=== PATIENT | female | born 1935 | race Caucasian/White ===

== ENCOUNTER → 2018-04-03 | Outpatient (CLI) | payer OTHER, MEDICAID ==
[~2018-04-03] MED LIST: ALPR.25T PO; CPR500T PO; HYDR-34 PO; LISI1TAB10 PO; METR500T PO; MULT-963 PO; RT-ALBUTEROL SULF 2.5 MG/3 ML PRE-MIX VIAL INH ONE
== END ==
LOC: RT 12:41
PROVIDERS: ATTEND Internal Medicine
DX: J44.9 Chronic obstructive pulmonary disease, unspecified (principal); R06.00 Dyspnea, unspecified
CPT/HCPCS: 94060; 94726; 94729

== ENCOUNTER 2018-07-10 10:13 | Outpatient (RCR) | payer OTHER, MEDICAID ==
[~2018-07-10 10:13] MED LIST changes: -RT-ALBUTEROL SULF 2.5 MG/3 ML PRE-MIX VIAL INH ONE
== END 2018-10-08 | disposition home or self-care (01) ==
LOC: PULM 10:13
PROVIDERS: ATTEND Internal Medicine
DX: J44.9 Chronic obstructive pulmonary disease, unspecified (principal)

== ENCOUNTER → 2018-09-08 | Outpatient (CLI) | payer MEDICAID, MEDICARE, OTHER ==
--- NOTE | 2018-09-08 11:37 | Diagnostic Imaging Report ---
PROCEDURE: US Gallbladder. TECHNIQUE: Multiple real-time grayscale images were obtained over the right upper quadrant in various projections. INDICATION: Back pain and gallstones. FINDINGS: The liver is normal in size 11.2 cm. There is mild parenchymal heterogeneity but no discrete liver mass is seen. The portal vein is patent and shows normal direction of flow. There is a stone within the gallbladder. No wall thickening or biliary ductal dilatation is seen. The pancreas was poorly visualized. The right kidney is small at 8.4 cm. There is no ascites. IMPRESSION: 1. Cholelithiasis without evidence of acute cholecystitis. Dictated by: Dictated on workstation # [id number]
== END ==
LOC: RAD 09:01
PROVIDERS: ATTEND Internal Medicine
DX: K80.20 Calculus of gallbladder without cholecystitis without obstruction (principal)
CPT/HCPCS: 76705

== ENCOUNTER 2018-12-04 10:22 | Outpatient (RCR) | payer MEDICARE ==
[2019-01-02 10:45] VITALS: BP 131/60
[2019-01-02 12:00] VITALS: BP 148/65
[2019-01-04 10:52] VITALS: BP 150/60
[2019-01-04 12:00] VITALS: BP 130/60
[2019-01-09 10:30] VITALS: BP 136/71
[2019-01-09 11:30] VITALS: BP 130/70
[2019-01-11 10:10] VITALS: BP 122/78
[2019-01-11 11:55] VITALS: BP 118/80
[2019-01-18 10:45] VITALS: BP 120/60
[2019-01-18 12:05] VITALS: BP 140/70
[2019-01-23 10:48] VITALS: BP 130/70
[2019-01-30 10:45] VITALS: BP 120/80
[2019-01-30 11:40] VITALS: BP 120/60
[2019-02-06 10:45] VITALS: BP 130/60
[2019-02-06 11:56] VITALS: BP 108/80
[2019-02-08 10:45] VITALS: BP 128/70
[2019-02-08 11:59] VITALS: BP 125/68
[2019-02-13 10:35] VITALS: BP 142/86
[2019-02-13 11:25] VITALS: BP 118/60
[2019-02-15 10:40] VITALS: BP 122/70
[2019-02-15 11:45] VITALS: BP 116/60
== END 2019-03-04 | disposition home or self-care (01) ==
LOC: RT 10:22
PROVIDERS: ATTEND Internal Medicine
DX: J44.9 Chronic obstructive pulmonary disease, unspecified (principal)
CPT/HCPCS: 99211